=== PATIENT | female | born 1990 | race Caucasian/White ===

== ENCOUNTER 2019-11-26 16:35 | Emergency (ER) | payer OTHER ==
[~2019-11-26] VITALS: Ht 162.6 cm; Wt 74.8 kg
[2019-11-26] MEDS ORDERED: Augmentin 875-1 EACH PO (18:35)
== END 2019-11-26 19:10 | disposition home or self-care (01) ==
LOC: ER 16:35
DX: H65.93 Unspecified nonsuppurative otitis media, bilateral (principal)
CPT/HCPCS: 99282; A9270-GY